=== PATIENT | male | born 1955 | race Caucasian/White ===

== ENCOUNTER 2016-07-22 11:56 | Inpatient (IN) | payer OTHER ==
[2016-07-23] MEDS ORDERED: ONDANSETRON DISINTEGRATING 4 MG TAB PO PRN (17:36)
--- NOTE | 2016-07-23 18:54 | GHP ---
[f rep st] HISTORY AND PHYSICAL POST ADMISSION PHYSICIAN EVALUATION AND REHABILITATION TREATMENT PLAN DATE OF ADMISSION: 07/23/2016 DATE OF EVALUATION: 07/23/2016 TIME OF EVALUATION: 1830 REFERRING FACILITY: [facility] REFERRING PHYSICIAN: Dr. Morales CONSULTING PHYSICIANS: There was a consultation with the Physical Medicine Rehabilitation service. He has followup scheduled with Radiation Oncology, but it is unclear whether they consulted while he was in the hospital. 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 IMPAIRMENT GROUP: 2.1. ETIOLOGIC DIAGNOSIS: Nontraumatic brain dysfunction. DATE OF ONSET: 07/15/2016. DATE OF SURGERY: 07/17/2016. HISTORY OF PRESENT ILLNESS: Mr. Lane had several months of abnormal olfactory sensation and belkis vu phenomena. He was seen by a neurologist and had an MRI ordered, which showed a peripherally enhancing mass in the inferior right frontal lobe extending into the right insula. He was seen in consultation by neurosurgeon, Dr. Kirkland, in [place]. He went to the [facility] in [place] for a second opinion and there, he underwent a craniotomy and excision of the mass by Dr. Morales. There was residual tumor in the right temporal lobe. Postoperative MRI was suggestive of a new acute infarct involving the right frontal operculum, right basal ganglia and caudate head. He had left hemiparesis and dysarthria. He had improvement in his left arm strength. He had some difficulty with swallowing and this improved, and he was finally on a regular diet with thin liquids. He had urinary retention during his stay and with a history of benign prostatic hypertrophy, he was begun on tamsulosin and has had resolution of the urinary retention. OTHER STUDIES AND LABS DURING HIS HOSPITALIZATION: A chest x-ray showed no acute cardiopulmonary abnormality on 07/15/2016. Urinalysis on 07/20/2016 showed small blood and otherwise was completely within normal limits. There was an upper extremity Doppler ultrasound done for redness and swelling of the left upper extremity and there was no deep venous thrombosis noted. PRECAUTIONS: He is a fall risk. He has seizure precautions. ACTIVE COMORBIDITIES: He has the tier 3 comorbidity of hemiparesis, otherwise there are no active tier 1, tier 2, or tier 3 active comorbidities. PAST MEDICAL HISTORY: There is a history of benign prostatic hypertrophy and of back pain. PAST SURGICAL HISTORY: He has had knee arthroscopy, an appendectomy, and a tonsillectomy. ALLERGIES: There are no known drug allergies. PREHOSPITAL MEDICATIONS: He had been prescribed levetiracetam by Dr. Franco. Other than that, I have no information about his prehospital medications. ADMISSION MEDICATIONS: 1. Oxycodone 5-10 mg p.o. q.3 hours p.r.n. 2. Levetiracetam 1000 mg p.o. b.i.d. 3. Dexamethasone 2 mg p.o. b.i.d. for 1 day and then beginning 07/24/2016, dexamethasone 1 mg p.o. b.i.d. 4. Tamsulosin 0.4 mg p.o. daily. 5. Famotidine 20 mg p.o. b.i.d. to continue as long as he is on dexamethasone. 6. Acetaminophen 1000 mg p.o. q.8 hours p.r.n. 7. Ondansetron 4 mg p.o. q.6 hours p.r.n. FAMILY HISTORY: Noncontributory. SOCIAL HISTORY: He is . He lives with his . 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 His also works out of the home. He has 2 sons, 1 of whom is in college and both of whom are local for now. He is not a tobacco smoker. He is an occasional alcohol and marijuana user. REVIEW OF SYSTEMS: He reports pain approximately 5/10 in his right forehead and right neck. He reports pain control has been adequate overall with acetaminophen. He denies nausea or vomiting coincident with the pain. He has weakness in the left upper extremity, but this has been getting stronger. He denies loss of sensation or tingling in the extremities. He denies vision changes. He denies difficulty swallowing, though he had noticed some drooling out of the left side of his mouth which has resolved and occasional cough, possibly from pooling of saliva. He denies nausea, vomiting, constipation, or diarrhea. He denies chest pain or palpitations. Denies fever or chills. He does not have a sore throat. He denies dysuria. He does have some urinary frequency at night. He denies joint pain or joint swelling. He denies skin rash or skin breakdown and otherwise, a 10-point review of systems is negative. PHYSICAL EXAM: VITALS: Not yet available in the chart. GENERAL: This is a well-nourished, well-developed man, appears younger than his chronologic age, cooperative, and in no acute distress. HEENT: There is a healing surgical scar across his right frontal scalp with minimal eschar. No dehiscence or erythema. No drainage. Extraocular movements are intact. Pupils are equal, round and reactive to light. Mucous membranes are moist. Dentition is in good condition. NECK: Supple. HEART: There is a regular rate and rhythm with no murmurs, rubs, or gallops. LUNGS: Clear to auscultation bilaterally. ABDOMEN : Soft, nontender, nondistended with normoactive bowel sounds and no hepatosplenomegaly. EXTREMITIES: There is no cyanosis, clubbing, or edema. Radial and dorsalis pedis pulses are 2+ bilaterally. NEUROLOGIC: He is alert and oriented x3. Cranial nerves 2-12 overall are grossly intact, but for a left facial droop. He has of 4/5 strength in the left upper extremity regarding hand signal person, shoulder shrug, biceps and triceps strength. Otherwise, his strength is 5/5 overall. He is able to arise from supine to seated independently and from seated to standing independently. Sensation is intact to light touch. Deep tendon reflexes are globally hypoactive. CURRENT LEVEL OF FUNCTION PER THE PREADMISSION SCREEN: Regarding diet, feeding , and swallowing, he was on a regular texture diet with thin liquids. He had swallow precautions for mild oral dysphagia. For grooming, he was noted to need assistance. For bathing, he needed assistance. For dressing, he needed assistance. For toileting, he needed assistance. Bed mobility was done with standby assist. Transfers with contact guard assist. He used a walker. His balance was poor. His endurance was poor. Regarding gait, he required minimal assistance with verbal cues. Regarding communication, he was noted to have mild dysarthria. For cognition, he needed some verbal cuing. Regarding safety precautions, he was considered to have fall, cognition, and aspiration precautions. He required cues to attend to the left side. IMPRESSION: Mr. Jay Lane is a 61-year-old man, who is now postoperative day 6 following a right frontal craniotomy and resection of an right inferior frontal mass, which most likely is a glioblastoma multiforme. He had a perioperative infarction involving the operculum and basal ganglia. He has had considerable improvement in his function with overall resolution of dysphagia and diet advancement, and with great improvement in his left upper extremity strength. He is appropriate for inpatient rehabilitation as he continues to have debility regarding balance, ambulation and activities of daily living, and he continues to have swallow precautions. He will benefit from comprehensive services in the inpatient rehabilitation unit. Additionally , he will benefit from nursing care regarding wound healing, bowel and bladder management, and avoidance of pressure sores. He will benefit from medical care regarding pain management, seizure prophylaxis, and benign prostatic hypertrophy. His goal is to return home with his family. For a safe discharge, it is anticipated that he will achieve modified independence with mobility, ADLs, and cognition, and that there will be medication management and neurologic training done for the patient and his family. Any durable medical equipment that might be required will be setup, and he will be referred for post rehabilitation services. He will have therapy with Physical Therapy, Occupational Therapy, and Speech and Language Pathology for 60 minutes per day for each discipline on 5-7 days per week. His expected duration of stay is 10-12 days. It is expected that after discharge, he will continue to benefit from home health services including speech and language pathology, occupational therapy, and physical therapy, as well as a support group. ASSESSMENT AND PLAN: 1. Debility, status post craniotomy and resection of a brain mass. Physical and occupational therapy to optimize mobility and activities of daily living. 2. Dysphagia, largely resolved and possible cognitive effect resulting from surgery and perioperative brain infarction. He will have assessment per Speech and Language Pathology. 3. Status post craniotomy. He will have nursing care for wound healing and medical attention regarding pain management. He will continue dexamethasone as ordered out of the hospital to reduce cerebral edema and levetiracetam for seizure prophylaxis. 4. Benign prostatic hypertrophy with urinary retention, which appears to be effectively treated with tamsulosin. 5. Likely glioblastoma multiforme. He will have follow up with Radiation Oncology at the [facility]. FOLLOWUP PLANS: He has followup planned with Dr. Morales, neurosurgeon, on 08/05. Additionally, on 08/05/2016 he will see oncologist, Dr. Fabio Cloud and radiation oncologist, Dr. Dylon Cheek. He will follow up within 1-2 weeks of discharge additionally with his primary care provider, Dr. Jose Silva in [place]. /[id number]/MODL MTDD
[2016-07-23] MEDS ORDERED: DEXAMETHASONE 2 MG TAB PO SCH (21:00)
[2016-07-23] MEDS: ACETAMINOPHEN 500 MG TAB PO PRN (21:50)
[2016-07-23] MEDS: FAMOTIDINE 20 MG TAB PO SCH (21:50)
[2016-07-23] MEDS: levETIRAcetam 500 MG TAB PO SCH (21:50)
[2016-07-24] MEDS: DEXAMETHASONE 2 MG TAB PO SCH ×2 (08:50→20:40)
[2016-07-24] MEDS: levETIRAcetam 500 MG TAB PO SCH ×2 (08:53→20:40)
[2016-07-24] MEDS: FAMOTIDINE 20 MG TAB PO SCH ×2 (08:53→20:40)
[2016-07-24] MEDS: TAMSULOSIN HCL 0.4 MG CAP PO SCH (08:54)
--- NOTE | 2016-07-24 10:28 | SOAPPROG ---
SOAP Progress Note Assessment/Plan: Assessment: * Debility, status post craniotomy and resection of a brain mass. Physical and occupational therapy to optimize mobility and activities of daily living. Has L hemineglect and drags L foot per OT. * Dysphagia, largely resolved, and possible cognitive deficit due to surgery and perioperative brain infarction. He will have assessment per Speech and Language Pathology. * Status post craniotomy. He will have nursing care for wound healing and medical attention regarding pain management. He will continue dexamethasone as ordered out of the hospital to reduce cerebral edema and levetiracetam for seizure prophylaxis. * Benign prostatic hypertrophy with urinary retention, which appears to be effectively treated with tamsulosin. * Likely glioblastoma multiforme. He will have follow up with Radiation Oncology at the [facility]. FOLLOWUP PLANS: He has followup planned with Dr. Morales, neurosurgeon, on 08/05. Additionally, on 08/05/2016 he will see oncologist, Dr. Fabio Cloud and radiation oncologist, Dr. Dylon Cheek. He will follow up within 1-2 weeks of discharge additionally with his primary care provider, Dr. Jose Silva in [place]. 07/24/16 11:08 Subjective: Slept well overall but was awake at about 0100 feeling thirsty. Has mild BERUMEN. No f/c, cough, dyspnea. Objective: Vital Signs Temp Pulse Resp BP Pulse Ox 36.6 C 63 16 116/77 95 07/23/16 20:00 07/23/16 20:00 07/23/16 20:00 07/23/16 20:00 07/23/16 20:00 07/23/16 07/24/16 07/25/16 05:59 05:59 05:59 Output Total 475 Balance -475 Physical Exam - Physical Exam General Appearance: WD/WN, alert, no apparent distress Respiratory: normal breath sounds, No crackles, No rhonchi, No wheezing Cardiac/Chest: regular rate, rhythm, No edema Abdomen: normal bowel sounds, non-tender, soft, No distended Skin: other (R scalp frotal/temporal incision with eschar, no erythema, discharge or dehiscence) Neuro/Psych: alert, normal mood/affect, oriented x 3, motor weakness (LUE) ICD10 Worksheet Patient Problems: Problems Problem Status Diagnosed Abnormality of gait following cerebrovascular accident (CVA) Acute CVA (cerebral vascular accident) Acute Glioblastoma multiforme Acute S/P craniotomy Acute - ICD10 Problem Qualifiers (1) Abnormality of gait following cerebrovascular accident (CVA)
--- NOTE | 2016-07-24 11:37 | PDOREHIP ---
Admission [facility] - Admission - 3 Day Assessment Period Admission Date/Day 1: 07/23/16 Day 2: 07/24/16 Day 3: 07/25/16 - Active Diagnoses Comorbidities and Co-existing Conditions at Admission: 75913. None of the Above - Skin Conditions Unhealed Pressure Ulcer (1 or more/Stage 1 or >)-Admission: 0. No
[2016-07-24] MEDS ORDERED: DEXAMETHASONE 2 MG TAB PO SCH (21:00)
[2016-07-25] MEDS: ACETAMINOPHEN 500 MG TAB PO PRN ×2 (08:28→16:36)
[2016-07-25] MEDS: DEXAMETHASONE 2 MG TAB PO SCH ×2 (08:29→19:49)
[2016-07-25] MEDS: FAMOTIDINE 20 MG TAB PO SCH ×2 (08:30→19:50)
[2016-07-25] MEDS: SENNOSIDES 1 TAB PO PRN (08:31)
[2016-07-25] MEDS: KEPPRA 500 MG PO SCH (08:31)
[2016-07-25] MEDS: TAMSULOSIN HCL 0.4 MG CAP PO SCH (08:32)
--- NOTE | 2016-07-25 11:20 | SOAPPROG ---
SOAP Progress Note Assessment/Plan: Assessment: * Debility, status post craniotomy and resection of a brain mass. Physical and occupational therapy to optimize mobility and activities of daily living. Has L hemineglect and drags L foot per OT. * Dysphagia, largely resolved, and cognitive deficit due to surgery and perioperative brain infarction. He will have assessment per Speech and Language Pathology. * Status post craniotomy. He will have nursing care for wound healing and medical attention regarding pain management. Dexamethasone dosing d/w Neurosurgery resident at [facility] 07/25/16: to continue 1 mg BID until follow -up with Neuro-oncology on 08/05/15. Continue levetiracetam for seizure prophylaxis. * Insomnia: trial of trazodone 25 mg at starting 07/25/16. * Benign prostatic hypertrophy with urinary retention, which appears to be effectively treated with tamsulosin. * Glioblastoma multiforme. He will have follow up with Neuro-oncology and Radiation Oncology at the [facility]. FOLLOWUP PLANS: He has followup planned with Dr. Morales, neurosurgeon, on 08/05. Additionally, on 08/05/2016 he will see oncologist, Dr. Fabio Cloud and radiation oncologist, Dr. Dylon Cheek. He will follow up within 1-2 weeks of discharge additionally with his primary care provider, Dr. Jose Silva in [place]. 07/25/16 11:18 Subjective: C/O poor sleep. Difficulty with repositioning overnight. O/w w/out complaint. L arm improving. Has constipation; took PRN senna this morning. Objective: Vital Signs Temp Pulse Resp BP Pulse Ox 36.6 C 66 16 109/79 92 07/25/16 05:38 07/25/16 05:38 07/25/16 05:38 07/25/16 05:38 07/25/16 05:38 07/24/16 07/25/16 07/26/16 05:59 05:59 05:59 Intake Total 1900 700 Output Total 475 1100 1 Balance -475 800 699 Physical Exam - Physical Exam General Appearance: WD/WN, alert, no apparent distress, other (Ambulating in chen CGA with OT on the way to the shower) Respiratory: No respiratory distress, No accessory muscle use Neuro/Psych: alert, normal mood/affect, oriented x 3, abnormal gait (normal pace ; mildly ataxic placement of L foot), motor weakness (L arm w/out arm swing during gait but able to move at shoulder, elbow) ICD10 Worksheet Patient Problems: Problems Problem Status Diagnosed Abnormality of gait following cerebrovascular accident (CVA) Acute CVA (cerebral vascular accident) Acute Glioblastoma multiforme Acute S/P craniotomy Acute - ICD10 Problem Qualifiers (1) Abnormality of gait following cerebrovascular accident (CVA)
[2016-07-25] MEDS: oxyCODONE IR 5 MG TAB PO PRN ×2 (12:53→16:35)
[2016-07-25] MEDS ORDERED: MAGNESIUM HYDROXIDE 30 ML UDCUP PO PRN (13:00)
[2016-07-25] MEDS: HYDROCORTISONE 2.5% 30 GM CRTUBE TP SCH ×2 (14:47→19:50)
[2016-07-25] MEDS ORDERED: ASPIRIN EC 81 MG TAB PO SCH (19:00)
--- NOTE | 2016-07-25 19:12 | US ---
Left Lower Extremity Deep Venous Duplex Doppler Ultrasound History: Left lower extremity leg pain and swelling. Technique: The left lower extremity deep venous system and veins of the proximal calf were interroga jeanie with grayscale, color, and spectral Doppler imaging. Findings: The left common femoral, superficial femoral, popliteal, and veins of the calf normally co mpress on grayscale imaging. The deep venous system and veins of the proximal calf have normal flow a nd expected variability. The visualized greater saphenous vein compresses normally without thrombus. There is evidence of superficial thrombus involving intramuscular gastrocnemius branch in the left ca lf which corresponds with area of tenderness. Impression: 1. No deep venous thrombosis in the left lower extremity. 2. Superficial thrombophlebitis involving gastrocnemius veins left calf corresponding with tenderness . These findings were discussed by telephone with Dr. Juan Bird.
[2016-07-25] MEDS: traZODone 50 MG TAB PO SCH (19:50)
[2016-07-25] MEDS: ENOXAPARIN 40 MG/0.4 ML SYR SC SCH (19:56)
[2016-07-26] MEDS: ACETAMINOPHEN 500 MG TAB PO PRN ×2 (04:30→16:42)
[2016-07-26] MEDS: oxyCODONE IR 5 MG TAB PO PRN ×3 (04:36→21:02)
[2016-07-26] MEDS: DEXAMETHASONE 2 MG TAB PO SCH ×2 (09:26→21:02)
[2016-07-26] MEDS: ENOXAPARIN 40 MG/0.4 ML SYR SC SCH (09:26)
[2016-07-26] MEDS: FAMOTIDINE 20 MG TAB PO SCH ×2 (09:27→21:02)
[2016-07-26] MEDS: KEPPRA 500 MG PO SCH (09:27)
[2016-07-26] MEDS: HYDROCORTISONE 2.5% 30 GM CRTUBE TP SCH ×2 (09:27→21:01)
[2016-07-26] MEDS: TAMSULOSIN HCL 0.4 MG CAP PO SCH (09:28)
[2016-07-26] MEDS: SENNOSIDES 1 TAB PO PRN ×2 (09:28→21:01)
--- NOTE | 2016-07-26 13:10 | SOAPPROG ---
SOAP Progress Note Assessment/Plan: Assessment: * Debility, status post craniotomy and resection of a brain mass. Physical and occupational therapy to optimize mobility and activities of daily living. Has L hemineglect and drags L foot per OT. * Dysphagia, largely resolved, and cognitive deficit due to surgery and perioperative brain infarction. He will have assessment per Speech and Language Pathology. * Superficial thrombosis L gastrocnemius veins: main risk factor is GBM. Mobility improving. D/W Dr. Walton, Heme/Onc contract project manager: advises enoxaparin X 2 weeks then switch to ASA. * Status post craniotomy. He will have nursing care for wound healing and medical attention regarding pain management. Dexamethasone dosing d/w Neurosurgery resident at [facility] 07/25/16: to continue 1 mg BID until follow -up with Neuro-oncology on 08/05/15. Continue levetiracetam for seizure prophylaxis. * Insomnia: trazodone 25 mg at HS started 07/25/16. Slept well. * Benign prostatic hypertrophy with urinary retention, which appears to be effectively treated with tamsulosin. * Glioblastoma multiforme. He will have follow up with Neuro-oncology and Radiation Oncology at the [facility]. FOLLOWUP PLANS: He has followup planned with Dr. Morales, neurosurgeon, on 08/05. Additionally, on 08/05/2016 he will see oncologist, Dr. Fabio Cloud and radiation oncologist, Dr. Dylon Cheek. He will follow up within 1-2 weeks of discharge additionally with his primary care provider, Dr. Jose Silva in [place]. 07/26/16 13:20 Subjective: No complaints. Slept well. Not in pain, No cough/dyspnea, f/c. Gradually getting more use of the L hand. Objective: Vital Signs Temp Pulse Resp BP Pulse Ox 36.6 C 66 16 117/98 H 94 07/26/16 08:00 07/26/16 08:00 07/26/16 08:00 07/26/16 08:00 07/26/16 08:00 07/25/16 07/26/16 07/27/16 05:59 05:59 05:59 Intake Total 1900 1690 Output Total 1100 1526 Balance 800 164 Physical Exam - Physical Exam General Appearance: WD/WN, alert, no apparent distress Respiratory: No respiratory distress, No accessory muscle use Skin: normal color, warm/dry Neuro/Psych: alert, normal mood/affect, oriented x 3, abnormal embedded software programmer II-XII (L facial droop at mouth; ataxia L hand.) ICD10 Worksheet Patient Problems: Problems Problem Status Diagnosed Abnormality of gait following cerebrovascular accident (CVA) Acute CVA (cerebral vascular accident) Acute Glioblastoma multiforme Acute S/P craniotomy Acute - ICD10 Problem Qualifiers (1) Abnormality of gait following cerebrovascular accident (CVA)
[2016-07-26] MEDS: traZODone 50 MG TAB PO SCH (21:01)
[2016-07-27] MEDS: oxyCODONE IR 5 MG TAB PO PRN (04:53)
[2016-07-27] MEDS: DEXAMETHASONE 2 MG TAB PO SCH ×2 (09:31→21:27)
[2016-07-27] MEDS: ENOXAPARIN 40 MG/0.4 ML SYR SC SCH (09:32)
[2016-07-27] MEDS: HYDROCORTISONE 2.5% 30 GM CRTUBE TP SCH ×2 (09:32→21:31)
[2016-07-27] MEDS: KEPPRA 500 MG PO SCH (09:32)
[2016-07-27] MEDS: FAMOTIDINE 20 MG TAB PO SCH ×2 (09:32→21:27)
[2016-07-27] MEDS: TAMSULOSIN HCL 0.4 MG CAP PO SCH (09:33)
[2016-07-27] MEDS ORDERED: IBUPROFEN 600 MG TAB PO PRN (09:57)
--- NOTE | 2016-07-27 10:57 | SOAPPROG ---
SOAP Progress Note Assessment/Plan: Assessment: * Debility, status post craniotomy and resection of a brain mass R frontal with perioperative CVA; as L hemineglect, LUE weakness. Initial FIM 77 on 07/27/16. SBA/CGA for T'fers and ambulation. Min A lower body dressing. L ignoral but no visual fieeld cut. Continue PT & OT to optimize mobility and activities of daily living. * Dysphagia, largely resolved, and cognitive deficit due to surgery and perioperative brain infarction. Has impulsivity and decreased safety awareness, improving. Continue SLATE ROOFER HELPER. * Superficial thrombosis L gastrocnemius veins: main risk factor is GBM. Mobility improving. D/W Dr. Walton, Heme/Onc station usher: advises enoxaparin X 2 weeks then switch to ASA. Has been using oxycodone for pain; add ibuprofen PRN. * Constipation: add bisacodyl suppository PRN. Continue laxatives. * Status post craniotomy. He will have nursing care for wound healing and medical attention regarding pain management. Dexamethasone dosing d/w Neurosurgery resident at [facility] 07/25/16: to continue 1 mg BID until follow -up with Neuro-oncology on 08/05/15. Continue levetiracetam for seizure prophylaxis. * Insomnia: trazodone 25 mg at HS started 07/25/16. Slept well. * Benign prostatic hypertrophy with urinary retention: continue tamsulosin. Noctuira may be worse due to oxycodone effect on bladder, and constipation. * Glioblastoma multiforme. He will have follow up with Neuro-oncology and Radiation Oncology at the [facility]. FOLLOWUP PLANS: He has followup planned with Dr. Morales, neurosurgeon, on 08/05. Additionally, on 08/05/2016 he will see oncologist, Dr. Fabio Cloud and radiation oncologist, Dr. Dylon Cheek. He will follow up within 1-2 weeks of discharge additionally with his primary care provider, Dr. Jose Silva in [place]. Attended staffing, 15 min. D/W case mgmt, nursing, communicable disease specialist, PT, OT, SLATE ROOFER HELPER. Has 2 steps to enter house, then can live on 1 level. Has good family support. Goal to discharge by 08/04/16. 07/27/16 10:58 Subjective: C/O L calf pain and has been using oxycodone (X 3 yesterday). Has constipation. Has nocturia X 2. No f/c, cough/dyspnea. N/V. Objective: Vital Signs Temp Pulse Resp BP Pulse Ox 36.8 C 71 16 107/72 93 07/26/16 18:43 07/26/16 18:43 07/26/16 18:43 07/26/16 18:43 07/26/16 18:43 07/26/16 07/27/16 07/28/16 05:59 05:59 05:59 Intake Total 1690 1000 Output Total 1526 1000 Balance 164 0 - Time Spent With Patient Time Spent With Patient: Greater than 35 minutes floor time today, including more than 50% of time in coordination of care during staffing, and counseling patient. Physical Exam - Physical Exam General Appearance: WD/WN, alert, no apparent distress Respiratory: normal breath sounds, No crackles, No rhonchi, No wheezing Cardiac/Chest: regular rate, rhythm, No edema Skin: normal color, warm/dry Neuro/Psych: alert, normal mood/affect, oriented x 3 ICD10 Worksheet Patient Problems: Problems Problem Status Diagnosed Abnormality of gait following cerebrovascular accident (CVA) Acute CVA (cerebral vascular accident) Acute Glioblastoma multiforme Acute S/P craniotomy Acute - ICD10 Problem Qualifiers (1) Abnormality of gait following cerebrovascular accident (CVA)
[2016-07-27] MEDS ORDERED: BISACODYL 10 MG SUPP PR PRN (10:58)
[2016-07-27] MEDS: ACETAMINOPHEN 500 MG TAB PO PRN (15:26)
[2016-07-27] MEDS: traZODone 50 MG TAB PO SCH (21:28)
[2016-07-28] MEDS: oxyCODONE IR 5 MG TAB PO PRN (06:30)
[2016-07-28] MEDS: DEXAMETHASONE 2 MG TAB PO SCH ×2 (08:16→20:04)
[2016-07-28] MEDS: FAMOTIDINE 20 MG TAB PO SCH ×2 (08:17→20:04)
[2016-07-28] MEDS: TAMSULOSIN HCL 0.4 MG CAP PO SCH (08:17)
[2016-07-28] MEDS: KEPPRA 500 MG PO SCH (08:19)
[2016-07-28] MEDS: ENOXAPARIN 40 MG/0.4 ML SYR SC SCH (08:21)
--- NOTE | 2016-07-28 10:45 | SOAPPROG ---
SOAP Progress Note Assessment/Plan: Assessment: * Debility, status post craniotomy and resection of a brain mass R frontal with perioperative CVA; has L hemineglect, LUE weakness. Initial FIM 77 on . SBA/CGA for T'fers and ambulation. Min A lower body dressing. L ignoral but no visual field cut. Continue PT & OT to optimize mobility and activities of daily living. * Dysphagia, largely resolved, and cognitive deficit due to surgery and perioperative brain infarction. Has impulsivity and decreased safety awareness, improving. Continue HOSTED SERVICES ANALYST. * Superficial thrombosis L gastrocnemius veins: main risk factor is GBM. Mobility improving. D/W Dr. Walton, Heme/Onc marine electronics repairer: advises prophylactic dose enoxaparin X 2 weeks then switch to ASA. Has been using oxycodone for pain ; add ibuprofen PRN. * Constipation: add bisacodyl suppository PRN. Continue laxatives. * Status post craniotomy. He will have nursing care for wound healing and medical attention regarding pain management. Dexamethasone dosing d/w Neurosurgery resident at [facility] 07/25/16: to continue 1 mg BID until follow -up with Neuro-oncology on 08/05/15. Continue levetiracetam for seizure prophylaxis. * Insomnia: trazodone 25 mg at HS started 07/25/16. Slept well. * Benign prostatic hypertrophy with urinary retention: continue tamsulosin. Nocturia may be worse due to oxycodone effect on bladder, and constipation. * Glioblastoma multiforme. He will have follow up with Neuro-oncology and Radiation Oncology at the [facility]. FOLLOWUP PLANS: He has followup planned with Dr. Morales, neurosurgeon, on 08/05. Additionally, on 08/05/2016 he will see oncologist, Dr. Fabio Cloud and radiation oncologist, Dr. Dylon Cheek. He will follow up within 1-2 weeks of discharge additionally with his primary care provider, Dr. Jose Silva in [place]. Has 2 steps to enter house, then can live on 1 level. Has good family support. Goal to discharge by 08/04/16. 07/28/16 10:46 Subjective: No xomplaints this morning. Feeling cognitively clearer. Had BERUMEN yesterday afternoon and noted that he became "grumpy." Massage scheduled for this afternoon. Objective: Vital Signs Temp Pulse Resp BP Pulse Ox 36.6 C 60 16 113/73 94 07/28/16 08:00 07/28/16 08:00 07/28/16 08:00 07/28/16 08:00 07/28/16 08:00 07/27/16 07/28/16 07/29/16 05:59 05:59 05:59 Intake Total 1000 825 Output Total 1000 750 600 Balance 0 75 -600 Physical Exam - Physical Exam General Appearance: WD/WN, alert, no apparent distress Respiratory: normal breath sounds, No crackles, No rhonchi, No wheezing Cardiac/Chest: regular rate, rhythm, No edema Skin: normal color, warm/dry ICD10 Worksheet Patient Problems: Problems Problem Status Diagnosed Abnormality of gait following cerebrovascular accident (CVA) Acute CVA (cerebral vascular accident) Acute Glioblastoma multiforme Acute S/P craniotomy Acute - ICD10 Problem Qualifiers (1) Abnormality of gait following cerebrovascular accident (CVA)
[2016-07-28] MEDS: ACETAMINOPHEN 500 MG TAB PO PRN (12:25)
[2016-07-28] MEDS: HYDROCORTISONE 2.5% 30 GM CRTUBE TP SCH ×2 (13:18→20:04)
[2016-07-28] MEDS: traZODone 50 MG TAB PO SCH (20:04)
[2016-07-29] MEDS: ACETAMINOPHEN 500 MG TAB PO PRN ×2 (05:11→19:23)
[2016-07-29] MEDS: HYDROCORTISONE 2.5% 30 GM CRTUBE TP SCH ×2 (08:51→19:23)
[2016-07-29] MEDS: TAMSULOSIN HCL 0.4 MG CAP PO SCH (08:51)
[2016-07-29] MEDS: ENOXAPARIN 40 MG/0.4 ML SYR SC SCH (08:51)
[2016-07-29] MEDS: FAMOTIDINE 20 MG TAB PO SCH ×2 (08:51→19:22)
[2016-07-29] MEDS: KEPPRA 500 MG PO SCH (08:51)
[2016-07-29] MEDS: DEXAMETHASONE 2 MG TAB PO SCH ×2 (08:51→19:22)
--- NOTE | 2016-07-29 12:08 | SOAPPROG ---
SOAP Progress Note Assessment/Plan: Assessment: * Debility, status post craniotomy and resection of a brain mass R frontal with perioperative CVA; has L hemineglect, LUE weakness. Initial FIM 77 on . SBA/CGA for T'fers and ambulation. Min A lower body dressing. L ignoral but no visual field cut. Continue PT & OT to optimize mobility and activities of daily living. * Dysphagia, largely resolved, and cognitive deficit due to surgery and perioperative brain infarction. Has impulsivity and decreased safety awareness, improving. Continue OPERATOR SUPPLY. * Superficial thrombosis L gastrocnemius veins: main risk factor is GBM. Mobility improving. D/W Dr. Walton, Heme/Onc aircraft air conditioning mechanic: advises prophylactic dose enoxaparin X 2 weeks (through 08/09/16) then switch to ASA. Has been using oxycodone for pain; add ibuprofen PRN. * Constipation: add bisacodyl suppository PRN. Continue laxatives. * Status post craniotomy. He will have nursing care for wound healing and medical attention regarding pain management. Dexamethasone dosing d/w Neurosurgery resident at [facility] 07/25/16: to continue 1 mg BID until follow -up with Neuro-oncology on 08/05/15. Continue levetiracetam for seizure prophylaxis. * Insomnia: trazodone 25 mg at HS started 07/25/16. Slept well. * Benign prostatic hypertrophy with urinary retention: continue tamsulosin. Nocturia may be worse due to oxycodone effect on bladder, and constipation. * Glioblastoma multiforme. He will have follow up with Neuro-oncology and Radiation Oncology at the [facility]. FOLLOWUP PLANS: He has followup planned with Dr. Morales, neurosurgeon, on 08/05. Additionally, on 08/05/2016 he will see oncologist, Dr. Fabio Cloud and radiation oncologist, Dr. Dylon Cheek. He will follow up within 1-2 weeks of discharge additionally with his primary care provider, Dr. Jose Silva in [place]. Has 2 steps to enter house, then can live on 1 level. Has good family support. Goal to discharge by 08/04/16. 07/29/16 12:06 Subjective: No complaints. Working with OT. Feels he's walking better. No f/c, cough, dyspnea. Objective: Vital Signs Temp Pulse Resp BP Pulse Ox 36.6 C 75 16 119/88 H 95 07/29/16 07:16 07/29/16 07:16 07/29/16 07:16 07/29/16 07:16 07/29/16 07:16 07/28/16 07/29/16 07/30/16 05:59 05:59 05:59 Intake Total 825 820 Output Total 750 2500 Balance 75 -1680 Physical Exam - Physical Exam General Appearance: WD/WN, alert, no apparent distress Respiratory: No respiratory distress, No accessory muscle use Skin: normal color, warm/dry Neuro/Psych: alert, normal mood/affect, oriented x 3, abnormal gait (Ambulating in chen with OT, FURNITURE DESIGNER, overall normal gait), motor weakness (LUE, working on stacking cones with OT.) ICD10 Worksheet Patient Problems: Problems Problem Status Diagnosed Abnormality of gait following cerebrovascular accident (CVA) Acute CVA (cerebral vascular accident) Acute Glioblastoma multiforme Acute S/P craniotomy Acute - ICD10 Problem Qualifiers (1) Abnormality of gait following cerebrovascular accident (CVA)
[2016-07-29] MEDS: traZODone 50 MG TAB PO SCH (19:22)
[2016-07-30] MEDS: FAMOTIDINE 20 MG TAB PO SCH ×2 (08:03→20:06)
[2016-07-30] MEDS: DEXAMETHASONE 2 MG TAB PO SCH ×2 (08:03→20:06)
[2016-07-30] MEDS: KEPPRA 500 MG PO SCH (08:04)
[2016-07-30] MEDS: HYDROCORTISONE 2.5% 30 GM CRTUBE TP SCH ×2 (08:05→20:07)
[2016-07-30] MEDS: TAMSULOSIN HCL 0.4 MG CAP PO SCH (08:05)
[2016-07-30] MEDS: SENNOSIDES 1 TAB PO PRN (08:05)
[2016-07-30] MEDS: ENOXAPARIN 40 MG/0.4 ML SYR SC SCH (08:34)
--- NOTE | 2016-07-30 13:26 | SOAPPROG ---
SOAP Progress Note Assessment/Plan: Assessment: * Debility, status post craniotomy and resection of a brain mass R frontal with perioperative CVA; has L hemineglect, LUE weakness. Initial FIM 77 on . SBA/CGA for T'fers and ambulation. Min A lower body dressing. L ignoral but no visual field cut. Continue PT & OT to optimize mobility and activities of daily living. * Dysphagia, largely resolved, and cognitive deficit due to surgery and perioperative brain infarction. Has impulsivity and decreased safety awareness, improving. Continue CONTRACTS REPRESENTATIVE. * Superficial thrombosis L gastrocnemius veins: main risk factor is GBM. Mobility improving. D/W Dr. Walton, Heme/Onc applications administrator: advises prophylactic dose enoxaparin X 2 weeks (through 08/09/16) then switch to ASA. Has been using oxycodone for pain; add ibuprofen PRN. * Constipation: add bisacodyl suppository PRN. Continue laxatives. * Status post craniotomy. He will have nursing care for wound healing and medical attention regarding pain management. Dexamethasone dosing d/w Neurosurgery resident at [facility] 07/25/16: to continue 1 mg BID until follow -up with Neuro-oncology on 08/05/15. Continue levetiracetam for seizure prophylaxis. * Insomnia: trazodone 25 mg at started 07/25/16. Sleeping well. * Benign prostatic hypertrophy with urinary retention: continue tamsulosin. Nocturia may be worse due to oxycodone effect on bladder, and constipation. * Glioblastoma multiforme. He will have follow up with Neuro-oncology and Radiation Oncology at the [facility]. FOLLOWUP PLANS: He has followup planned with Dr. Morales, neurosurgeon, on 08/05. Additionally, on 08/05/2016 he will see oncologist, Dr. Fabio Cloud and radiation oncologist, Dr. Dylon Cheek. He will follow up within 1-2 weeks of discharge additionally with his primary care provider, Dr. Jose Silva in [place]. Has 2 steps to enter house, then can live on 1 level. Has good family support. Family meeting 07/31/16. Goal to discharge by 08/04/16. 07/30/16 13:25 Subjective: C/O fatigue after working intherapy on R hand function. Denies cough, dyspnea, f/c, NVDC. No voiding difficulties. Objective: Vital Signs Temp Pulse Resp BP Pulse Ox 36.5 C 55 L 16 112/80 95 07/30/16 06:32 07/30/16 06:32 07/30/16 06:32 07/30/16 06:32 07/30/16 06:32 07/29/16 07/30/16 07/31/16 05:59 05:59 05:59 Intake Total 820 350 940 Output Total 2500 1300 Balance -1680 -950 940 Physical Exam - Physical Exam General Appearance: WD/WN, alert, no apparent distress Respiratory: No respiratory distress, No accessory muscle use Skin: normal color, warm/dry Neuro/Psych: alert, normal mood/affect, oriented x 3, motor weakness (R hand ataxia) ICD10 Worksheet Patient Problems: Problems Problem Status Diagnosed Abnormality of gait following cerebrovascular accident (CVA) Acute CVA (cerebral vascular accident) Acute Glioblastoma multiforme Acute S/P craniotomy Acute - ICD10 Problem Qualifiers (1) Abnormality of gait following cerebrovascular accident (CVA)
[2016-07-30] MEDS: traZODone 50 MG TAB PO SCH (20:06)
[2016-07-31] MEDS: ACETAMINOPHEN 500 MG TAB PO PRN ×2 (08:53→20:17)
[2016-07-31] MEDS: FAMOTIDINE 20 MG TAB PO SCH ×2 (08:54→20:18)
[2016-07-31] MEDS: HYDROCORTISONE 2.5% 30 GM CRTUBE TP SCH ×2 (08:54→20:19)
[2016-07-31] MEDS: DEXAMETHASONE 2 MG TAB PO SCH ×2 (08:54→20:19)
[2016-07-31] MEDS: TAMSULOSIN HCL 0.4 MG CAP PO SCH (08:54)
[2016-07-31] MEDS: KEPPRA 500 MG PO SCH (08:55)
[2016-07-31] MEDS: ENOXAPARIN 40 MG/0.4 ML SYR SC SCH (10:10)
--- NOTE | 2016-07-31 12:56 | SOAPPROG ---
SOAP Progress Note Assessment/Plan: Assessment: * Debility, status post craniotomy and resection of a brain mass R frontal with perioperative CVA; has L hemineglect, LUE ataxia > weakness. Initial FIM 77 on 07/27/16. Improving mobility and ADLs; will progress towards I in room over weekend 08/01/16 - 08/02/15. L ignoral but no visual field cut. Continue PT & OT to optimize mobility and activities of daily living. * Dysphagia, largely resolved, and cognitive deficit due to surgery and perioperative brain infarction. Has impulsivity and decreased safety awareness, improving. Continue SURETY BOND AGENT. * Superficial thrombosis L gastrocnemius veins: main risk factor is GBM. Mobility improving. D/W Dr. Walton, Heme/Onc rubbish collection supervisor: advises prophylactic dose enoxaparin X 2 weeks (through 08/09/16) then switch to ASA. Has been using oxycodone for pain; add ibuprofen PRN. * Constipation: add bisacodyl suppository PRN. Continue laxatives. * Status post craniotomy. He will have nursing care for wound healing and medical attention regarding pain management. Dexamethasone dosing d/w Neurosurgery resident at [facility] 07/25/16: to continue 1 mg BID until follow -up with Neuro-oncology on 08/05/15. Continue levetiracetam for seizure prophylaxis. * Insomnia: trazodone 25 mg at HS started 07/25/16. Sleeping well. * Benign prostatic hypertrophy with urinary retention: continue tamsulosin. Nocturia may be worse due to oxycodone effect on bladder, and constipation. * Glioblastoma multiforme. He will have follow up with Neuro-oncology and Radiation Oncology at the [facility]. FOLLOWUP PLANS: He has followup planned with Dr. Morales, neurosurgeon, on 08/05. Additionally, on 08/05/2016 he will see oncologist, Dr. Fabio Cloud and radiation oncologist, Dr. Dylon Cheek. He will follow up within 1-2 weeks of discharge additionally with his primary care provider, Dr. Jose Silva in [place]. Attended staffing, 30 min. Patient, , son and daughter in attendance. D/W case mgmt, nursing, PT, OT, SURETY BOND AGENT. Discussed functional limitations re Ll ignoral and family's role in assisting once he goes home. Has 2 steps to enter house, then can live on 1 level. Has good family support. Goal to discharge by 08/04/16. 07/31/16 12:57 Subjective: No complaints. SLept well, not in pain. No f/c, cough/dyspnea, n/v/c/d. Objective: Vital Signs Temp Pulse Resp BP Pulse Ox 36.8 C 59 L 14 113/74 92 07/31/16 07:40 07/31/16 07:40 07/31/16 07:40 07/31/16 07:40 07/31/16 07:40 07/30/16 07/31/16 08/01/16 05:59 05:59 05:59 Intake Total 350 1670 360 Output Total 1300 600 Balance -950 1070 360 - Time Spent With Patient Time Spent With Patient: Greater than 35 minutes floor time today, including more than 50% of time on coordination of care and counseling during family meeting. Physical Exam - Physical Exam General Appearance: WD/WN, alert, no apparent distress Respiratory: normal breath sounds, No crackles, No rhonchi, No wheezing Cardiac/Chest: regular rate, rhythm, No edema Skin: normal color, warm/dry Neuro/Psych: alert, normal mood/affect, oriented x 3, motor weakness (LUE ataxia ) ICD10 Worksheet Patient Problems: Problems Problem Status Diagnosed Abnormality of gait following cerebrovascular accident (CVA) Acute CVA (cerebral vascular accident) Acute Glioblastoma multiforme Acute S/P craniotomy Acute - ICD10 Problem Qualifiers (1) Abnormality of gait following cerebrovascular accident (CVA)
[2016-07-31] MEDS: traZODone 50 MG TAB PO SCH (20:18)
[2016-08-01] MEDS: KEPPRA 500 MG PO SCH (08:57)
[2016-08-01] MEDS: ACETAMINOPHEN 500 MG TAB PO PRN ×2 (08:57→21:00)
[2016-08-01] MEDS: TAMSULOSIN HCL 0.4 MG CAP PO SCH (08:58)
[2016-08-01] MEDS: FAMOTIDINE 20 MG TAB PO SCH ×2 (08:59→21:02)
[2016-08-01] MEDS: DEXAMETHASONE 2 MG TAB PO SCH ×2 (08:59→21:01)
[2016-08-01] MEDS: ENOXAPARIN 40 MG/0.4 ML SYR SC SCH (09:01)
[2016-08-01] MEDS: HYDROCORTISONE 2.5% 30 GM CRTUBE TP SCH ×2 (09:05→21:03)
--- NOTE | 2016-08-01 11:14 | SOAPPROG ---
SOAP Progress Note Assessment/Plan: Assessment: * Debility, status post craniotomy and resection of a brain mass R frontal with perioperative CVA; has L hemineglect, LUE ataxia > weakness. Initial FIM 77 on 07/27/16. Improving mobility and ADLs; will progress towards I in room over weekend 08/01/16 - 08/02/15. L ignoral but no visual field cut. Continue PT & OT to optimize mobility and activities of daily living. * Dysphagia, largely resolved, and cognitive deficit due to surgery and perioperative brain infarction. Has impulsivity and decreased safety awareness, improving. Continue BREWING DIRECTOR. * Superficial thrombosis L gastrocnemius veins: main risk factor is GBM. Mobility improving. D/W Dr. Walton, Heme/Onc meat boner: advises prophylactic dose enoxaparin X 2 weeks (through 08/09/16) then switch to ASA. Has been using oxycodone for pain; add ibuprofen PRN. * Constipation: add bisacodyl suppository PRN. Continue laxatives. * Status post craniotomy. He will have nursing care for wound healing and medical attention regarding pain management. Dexamethasone dosing d/w Neurosurgery resident at [facility] 07/25/16: to continue 1 mg BID until follow -up with Neuro-oncology on 08/05/15. Continue levetiracetam for seizure prophylaxis. * Insomnia: trazodone 25 mg at HS started 07/25/16. Sleeping well. * Benign prostatic hypertrophy with urinary retention: continue tamsulosin. Nocturia may be worse due to oxycodone effect on bladder, and constipation. * Glioblastoma multiforme. He will have follow up with Neuro-oncology and Radiation Oncology at the [facility]. FOLLOWUP PLANS: He has followup planned with Dr. Morales, neurosurgeon, on 08/05. Additionally, on 08/05/2016 he will see oncologist, Dr. Fabio Cloud and radiation oncologist, Dr. Dylon Cheek. He will follow up within 1-2 weeks of discharge additionally with his primary care provider, Dr. Jose Silva in [place]. Family meeting 07/31/16: discussed functional limitations re L ignoral and family's role in assisting once he goes home. Has 2 steps to enter house, then can live on 1 level. Has good family support. Goal to discharge by 08/04/16. 08/01/16 11:10 Subjective: No complaints. Walked outside with PT today. Objective: Vital Signs Temp Pulse Resp BP Pulse Ox 36.8 C 63 16 109/80 92 08/01/16 06:39 08/01/16 06:39 08/01/16 06:39 08/01/16 06:39 08/01/16 06:39 07/31/16 08/01/16 08/02/16 05:59 05:59 05:59 Intake Total 1670 1210 700 Output Total 600 700 Balance 1070 510 700 Physical Exam - Physical Exam General Appearance: WD/WN, alert, no apparent distress Respiratory: No respiratory distress, No accessory muscle use Skin: normal color, warm/dry Neuro/Psych: alert, normal mood/affect, oriented x 3 ICD10 Worksheet Patient Problems: Problems Problem Status Diagnosed Abnormality of gait following cerebrovascular accident (CVA) Acute CVA (cerebral vascular accident) Acute Glioblastoma multiforme Acute S/P craniotomy Acute - ICD10 Problem Qualifiers (1) Abnormality of gait following cerebrovascular accident (CVA)
[2016-08-01] MEDS: traZODone 50 MG TAB PO SCH (21:00)
[2016-08-02] MEDS: ACETAMINOPHEN 500 MG TAB PO PRN (09:08)
[2016-08-02] MEDS: FAMOTIDINE 20 MG TAB PO SCH ×2 (09:09→20:43)
[2016-08-02] MEDS: DEXAMETHASONE 2 MG TAB PO SCH ×2 (09:09→20:42)
[2016-08-02] MEDS: KEPPRA 500 MG PO SCH (09:09)
[2016-08-02] MEDS: TAMSULOSIN HCL 0.4 MG CAP PO SCH (09:10)
[2016-08-02] MEDS: ENOXAPARIN 40 MG/0.4 ML SYR SC SCH (09:12)
[2016-08-02] MEDS: HYDROCORTISONE 2.5% 30 GM CRTUBE TP SCH ×2 (09:13→20:45)
--- NOTE | 2016-08-02 11:44 | SOAPPROG ---
SOAP Progress Note Assessment/Plan: Assessment: 61 yo gentleman S/P crani for GBM * Debility, status post craniotomy and resection of a brain mass R frontal with perioperative CVA; has L hemineglect, LUE ataxia > weakness. Initial FIM 77 on 07/27/16. Improving mobility and ADLs; will progress towards I in room today . Safety impacted by L ignoral (no visual field cut). Continue PT & OT to optimize mobility and activities of daily living. * Dysphagia, largely resolved, cont monitoring * Cognitive deficit due to surgery and perioperative brain infarction. Has impulsivity and decreased safety awareness, improving. Continue MARKETING COPYWRITER. * Superficial thrombosis L gastrocnemius veins: main risk factor is GBM. Mobility improving. D/W Dr. Walton, Heme/Onc asset protection officer: advises prophylactic dose enoxaparin X 2 weeks (through 08/09/16) then switch to ASA. * Pain: Has been using oxycodone and ibuprofen PRN. * Sleep: has nocturia x1 2/2 BPH and prefers not to be on sleep meds, will change Trazadone to PRN * Constipation: cont bisacodyl suppository PRN. Continue laxatives. * Status post craniotomy. Wound healing. Dexamethasone dosing d/w Neurosurgery resident at [facility] 07/25/16: to continue 1 mg BID until follow -up with Neuro-oncology on 08/05/15. Continue levetiracetam for seizure prophylaxis. * Insomnia: trazodone 25 mg at HS started 07/25/16. Sleeping well. * Benign prostatic hypertrophy with urinary retention: continue tamsulosin. Nocturia may be worse due to oxycodone effect on bladder, and constipation. * Glioblastoma multiforme. He will have follow up with Neuro-oncology and Radiation Oncology at the [facility]. FOLLOWUP PLANS: He has followup planned with Dr. Morales, neurosurgeon, on 08/05. Additionally, on 08/05/2016 he will see oncologist, Dr. Fabio Cloud and radiation oncologist, Dr. Dylon Cheek. He will follow up within 1-2 weeks of discharge additionally with his primary care provider, Dr. Jose Silva in [place]. Plan: Cont Dr Nguyen rehab treatment plan 08/02/16 13:04 Subjective: Resting comfortably In good spirits states he is more tired and slower in processing than yesterday Both request trying a night without the Trazadone Objective: Vital Signs Temp Pulse Resp BP Pulse Ox 36.8 C 71 16 116/75 93 08/02/16 07:15 08/02/16 07:15 08/02/16 07:15 08/02/16 07:15 08/02/16 07:15 08/01/16 08/02/16 08/03/16 05:59 05:59 05:59 Intake Total 1210 700 Output Total 700 200 Balance 510 500 Physical Exam - Physical Exam General Appearance: alert, no apparent distress, other (Crani incision CD&I) Neck: supple Respiratory: lungs clear Cardiac/Chest: regular rate, rhythm Abdomen: normal bowel sounds, soft Skin: normal color, warm/dry, No rash Extremities: No pedal edema, No calf tenderness Neuro/Psych: alert, normal mood/affect, oriented x 3, cognition abnormalities ( word finding, slow SOP), other (No acute changes) ICD10 Worksheet Patient Problems: Problems Problem Status Diagnosed Abnormality of gait following cerebrovascular accident (CVA) Acute CVA (cerebral vascular accident) Acute Glioblastoma multiforme Acute S/P craniotomy Acute
[2016-08-02] MEDS ORDERED: traZODone 50 MG TAB PO PRN (13:07)
[2016-08-03] MEDS: FAMOTIDINE 20 MG TAB PO SCH ×2 (08:04→19:54)
[2016-08-03] MEDS: TAMSULOSIN HCL 0.4 MG CAP PO SCH (08:04)
[2016-08-03] MEDS: DEXAMETHASONE 2 MG TAB PO SCH ×2 (08:06→19:54)
[2016-08-03] MEDS: KEPPRA 500 MG PO SCH (08:07)
[2016-08-03] MEDS: HYDROCORTISONE 2.5% 30 GM CRTUBE TP SCH ×2 (08:09→21:21)
[2016-08-03] MEDS: ENOXAPARIN 40 MG/0.4 ML SYR SC SCH (08:09)
--- NOTE | 2016-08-03 11:01 | SOAPPROG ---
SOAP Progress Note Assessment/Plan: Assessment: 61 yo gentleman S/P crani for GBM * Debility, status post craniotomy and resection of a brain mass R frontal with perioperative CVA; has L hemineglect, LUE>LLE ataxia > weakness. Initial FIM 77 on 07/27/16. Fim improved to 106 on 08/03/16. Improving mobility and ADLs; safe with I in room today 22/02, but mild impulsivity and neglect impact his safety awareness. Continue PT & OT (now and then as outpt) to optimize mobility and activities of daily living. * Dysphagia, largely resolved, some minimal L pocketing persists. cont monitoring * Cognitive deficit due to surgery and perioperative brain infarction. Has impulsivity and decreased safety awareness, improving. Continue PATTERN CLERK. * Superficial thrombosis L gastrocnemius veins: main risk factor is GBM. Mobility improving. D/W Dr. Walton, Heme/Onc concrete technician: advises prophylactic dose enoxaparin X 2 weeks (through 08/09/16) then switch to ASA. * Pain: Minimal. Has been using oxycodone and ibuprofen PRN. * Sleep: has nocturia x1 2/2 BPH and prefers not to be on sleep meds, will change Trazadone to PRN * Constipation: cont bisacodyl suppository PRN. Continue laxatives. * Status post craniotomy. Wound healing. Dexamethasone dosing d/w Neurosurgery resident at [facility] 07/25/16: to continue 1 mg BID until follow -up with Neuro-oncology on 08/05/15. Continue levetiracetam for seizure prophylaxis. * Insomnia: trazodone 25 mg at started 07/25/16. Sleeping well. * Benign prostatic hypertrophy with urinary retention: continue tamsulosin. Nocturia may be worse due to oxycodone effect on bladder, and constipation. * Glioblastoma multiforme. He will have follow up with Neuro-oncology and Radiation Oncology at the [facility]. DISCHARGE PLANS: Home tomorrow 08/04/16, with out patient PT, OT, ST at [facility] FOLLOWUP PLANS: He has followup planned with Dr. Morales, neurosurgeon, on 08/05. Additionally, on 08/05/2016 he will see oncologist, Dr. Fabio Cloud and radiation oncologist, Dr. Dylon Cheek. He will follow up within 1-2 weeks of discharge additionally with his primary care provider, Dr. Jose Silva in [place]. See staffing notes this same date 08/03/16 08/03/16 10:56 Subjective: No new problems or C/O's Medically stable Limited insight No F/C/CP/SOB/N/V/D/C Objective: Vital Signs Temp Pulse Resp BP Pulse Ox 36.8 C 64 18 106/79 96 08/03/16 07:38 08/03/16 07:38 08/03/16 07:38 08/03/16 07:38 08/03/16 07:38 08/02/16 08/03/16 08/04/16 05:59 05:59 05:59 Intake Total 700 Output Total 200 800 Balance 500 -800 Physical Exam - Physical Exam General Appearance: alert, no apparent distress Neck: supple Respiratory: lungs clear Cardiac/Chest: regular rate, rhythm Skin: normal color, warm/dry, No rash Extremities: No pedal edema, No calf tenderness Neuro/Psych: alert, normal mood/affect, oriented x 3, motor weakness, sensory deficit, cognition abnormalities, other (no acute changes) ICD10 Worksheet Patient Problems: Problems Problem Status Diagnosed Abnormality of gait following cerebrovascular accident (CVA) Acute CVA (cerebral vascular accident) Acute Glioblastoma multiforme Acute S/P craniotomy Acute
[2016-08-03 20:19] VITALS: O2SAT 94
[2016-08-04] MEDS: ACETAMINOPHEN 500 MG TAB PO PRN (01:48)
[2016-08-04 06:34] VITALS: BP 107/72; PULSE 66; RESP 18; TEMP 97.5
[2016-08-04] MEDS: DEXAMETHASONE 2 MG TAB PO SCH (08:15)
[2016-08-04] MEDS: FAMOTIDINE 20 MG TAB PO SCH (08:15)
[2016-08-04] MEDS: TAMSULOSIN HCL 0.4 MG CAP PO SCH (08:15)
[2016-08-04] MEDS: ENOXAPARIN 40 MG/0.4 ML SYR SC SCH (08:32)
[2016-08-04] MEDS: HYDROCORTISONE 2.5% 30 GM CRTUBE TP SCH (08:36)
[2016-08-04] MEDS: KEPPRA 500 MG PO SCH (08:37)
--- NOTE | 2016-08-04 18:48 | GDS ---
[f rep st] DISCHARGE SUMMARY ADMITTING DIAGNOSES: Debility status post craniotomy and excision of glioblastoma multiforme with a perioperative cerebrovascular accident. DISCHARGE DIAGNOSES: Debility status post craniotomy and excision of glioblastoma multiforme with a perioperative cerebrovascular accident. CONSULTATIONS: None. PROCEDURES: None. COMPLICATIONS: None. HISTORY/HOSPITAL COURSE: Mr. Lane came to [facility] from the [facility], where he had craniotomy and excision of a glioblastoma multiforme which was located in the right frontal lobe. There was a perioperative cerebrovascular accident. When he came to inpatient rehabilitation, he had dysphagia, left upper extremity weakness, left facial droop, and gait abnormality with balance impairment. He had therapies with Physical, Occupational, Speech Therapy. His initial functional independence measure on 07/27/2016 was 77 which is consistent with long-term care facility level of care. He had considerable improvement subsequently and was made independent in his room before discharge. He was noted to have a left hemineglect, but no visual field cut and initially, he needed significant cuing to avoid colliding with objects on his left. Through the course of his stay, he improved in his ability to scan to the left and his awareness of the left side of the world. He also had steady improvement in his left upper extremity strength and function, though he remained somewhat ataxic. He had dysphagia, which largely resolved with treatment with Speech Therapy. He had a cognitive deficit with impulsivity and decreased safety awareness and reduced insight into his deficits. He worked with Speech Therapy on these issues as well. He suffered a superficial thrombosis of the left gastrocnemius veins. The main risk factor for him was the presence of a cancer. With improved mobility, he was considered a low risk for propagation. He was prophylactically put on enoxaparin for a total of 2 weeks, which was decided after discussion with the on-call oncologist, Dr. Walton. He needed oxycodone for pain initially, but soon became pain-free. He had insomnia, which responded well to trazodone 25 mg q.h.s. During the course of his stay, he had less need for the trazodone and ultimately was not using it. He had urinary retention in the acute hospital and tamsulosin had been started. Tamsulosin was continued. STUDIES AND LABS DURING HIS STAY: No laboratory studies were done. DISCHARGE PLAN: Condition upon discharge is good. Activity is ad josefina, though he is not to be driving, and he will need supervision for any ambulation outside due to his left-sided hemineglect. Diet is regular. Date of next appointment: He has followups with the oncology team at [facility] scheduled for 08/05/2016, including neurosurgeon Dr. Morales, neurooncologist Dr. Cloud, and radiation oncologist Dr. Cheek , and he should have follow up with his primary care provider, Dr. Silva, within 1-2 weeks of his discharge. MEDICATIONS UPON DISCHARGE: 1. Famotidine 20 mg p.o. b.i.d. 2. Acetaminophen 1000 mg p.o. q.8 hours p.r.n. 3. Trazodone 25 mg p.o. q.h.s. p.r.n. 4. Tamsulosin 0.4 mg p.o. daily. 5. Senokot 1-2 tabs p.o. b.i.d. p.r.n. 6. Levetiracetam 1000 mg p.o. b.i.d. 7. Ibuprofen 600 mg p.o. q.6 hours p.r.n. 8. Enoxaparin 40 mg subcutaneous daily through 08/09/2016. 9. Dexamethasone 1 mg p.o. b.i.d. through 08/05/2016. ISSUES TO BE ADDRESSED AT FOLLOWUP: 1. Glioblastoma multiforme: To be assessed and treated per the oncology team at [facility]. Neurosurgery and Neurooncology will make decisions regarding continuing levetiracetam and dexamethasone, and he likely can stop taking famotidine when he is off the dexamethasone. 2. Functional status: He will continue to have physical therapy and occupational therapy at home, and he can follow up regarding functional status with his primary care provider, Dr. Silva. 3. Dysphagia and cognitive deficits: The dysphagia largely resolved. He will have followup with Speech Therapy at home. 4. Benign prostatic hypertrophy: Once he is no longer on opiate medications, which he had not been taking through much of his stay, he could consider discontinuing the tamsulosin and finding if he still has any difficulty with voiding. Copy requested to: Dr. Cheek Radiation Oncologist Dr. Morales Neurosurgery Dr. Cloud Neurooncology /[id number]/MODL MTDD
--- NOTE | 2016-08-05 09:11 | PDOREHIP ---
Admission [facility] - Admission - 3 Day Assessment Period Admission Date/Day 1: 07/23/16 Day 2: 07/24/16 Day 3: 07/25/16 Discharge [facility] - Discharge - 3 Day Assessment Period 2 Days Prior to Anticipated Discharge Date: 08/03/16 1 Day Prior to Anticipated Discharge Date: 08/04/16 Anticipated Discharge Date: 08/05/16 - Discharge Skin Conditions Unhealed Pressure Ulcer (1 or more/Stage 1 or >)-Discharge: 0. No
== END 2016-08-04 14:51 | disposition home or self-care (01) | DRG 949 ==
LOC: BREH 07-23 16:20
PROVIDERS: ADMIT Internal Medicine; ATTEND Internal Medicine
PROC: F08Z4ZZ Home Management Treatment (ICD-10-PCS; principal; 2016-07-23)
PROC: F0636ZZ Communicative/Cognitive Integration Skills Treatment of Neurological System - Whole Body (ICD-10-PCS; principal; 2016-07-23)
PROC: F07M3ZZ Motor Function Treatment of Musculoskeletal System - Whole Body (ICD-10-PCS; principal; 2016-07-23)
DX: Z48.811 Encounter for surgical aftercare following surgery on the nervous system (principal); C71.1 Malignant neoplasm of frontal lobe; I97.821 Postprocedural cerebrovascular infarction following other surgery; I69.354 Hemiplegia and hemiparesis following cerebral infarction affecting left non-dominant side; I82.890 Acute embolism and thrombosis of other specified veins; I69.391 Dysphagia following cerebral infarction; I69.318 Other symptoms and signs involving cognitive functions following cerebral infarction; N40.1 Benign prostatic hyperplasia with lower urinary tract symptoms; R33.8 Other retention of urine; G47.00 Insomnia, unspecified; K59.00 Constipation, unspecified
CPT/HCPCS: 92507-GN; 92522-GN; 92526; 92610; 97001-GP; 97003-GO; 97110-GO; 97110-GP; 97112-GO; 97112-GP; 97116-GP; 97530-GO; 97532-GO; 97535-GO; 99366-GO; J1650

== ENCOUNTER 2016-10-25 10:01 | Emergency (ER) | payer OTHER ==
[2016-10-25 10:07] VITALS: RESP 16
--- NOTE | 2016-10-25 10:45 | EDPHY ---
H & P Stated Complaint: poss seizure this morning. Feels dizzy, recent change in keppra dosing. Time Seen by Provider: 10/25/16 10:12 HPI/ROS: CHIEF COMPLAINT: Spinning HISTORY OF PRESENT ILLNESS: This is a 61-year-old male status post resection of glioblastoma in July of 2016 (with postoperative right-sided infarct) followed by 6 weeks of chemotherapy and radiation therapy. 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 He is taking Keppra. 2 weeks ago was Keppra dose was decreased from 1000 mg twice daily to 750 mg p.o. twice daily. He is compliant with his medication. He had been taking Decadron but this medication was weaned and he has not had any steroid medication for 2 weeks. Last night, in the middle of the night he awoke with a spinning sensation. He was able to return to sleep. When he got up this morning and sat on the edge of the bed he felt as if everything was spinning and moving. His noticed that his eyes were moving back and forth. This lasted for a matter of minutes and resolved. He had associated nausea, no vomiting. He has had chronic dizziness and is experiencing some dizziness/lightheadedness now, similar to what he has been experiencing all along. He has chronic headache and is feeling headache today. It is frontal and slightly worse than usual. He has not had any olfactory sensations or any obvious seizure activity. He is not aware of any new numbness or weakness. No recent head or ear trauma. No ear ache, drainage, or change in hearing. No fever. REVIEW OF SYSTEMS: A ten point review of systems was performed and is negative with the exception of the items mentioned in the HPI. Source: Patient, Family, Old records Exam Limitations: No limitations - Personal History Current Tetanus Diphtheria and Acellular Pertussis (TDAP): Yes - Medical/Surgical History Hx Asthma: No Hx Chronic Respiratory Disease: No Hx Diabetes: No Hx Cardiac Disease: No Hx Renal Disease: No Hx Cirrhosis: No Hx Alcoholism: No Hx HIV/AIDS: No Hx Splenectomy or Spleen Trauma: No Other PMH: Right glioblastoma multiforme status post resection, chemotherapy, and radiation therapy. Olfactory seizures. Knee arthroscopy. Appendectomy. Tonsillectomy. - Social History Smoking Status: Never smoked - Physical Exam Exam: General Appearance: Alert. Vital signs reviewed. Eyes: Pupils equal and round, no conjunctival injection, no discharge. Anicteric. ENT, Mouth: Mucous membranes are moist, no oropharyngeal erythema or edema. Neck: No lymphadenopathy, supple. Respiratory: Lungs are clear to auscultation; no wheezes, rales, or rhonchi. Cardiovascular: Regular rate and rhythm; no murmur, rub, or gallop. Gastrointestinal: Abdomen is soft and nontender, no masses or organomegaly, bowel sounds normal. Skin: Warm and dry, no rashes on exposed skin, normal color. Back: Nontender to palpation over the thoracolumbar spine. No CVAT. Extremities: No lower extremity edema, no calf tenderness or swelling. Neurological: Alert and oriented. Moving all four extremities easily and equally. Cranial nerves II through XII are examined and are intact (visual acuity not tested) with the exception of mild left facial weakness and slight tongue deviation to the left. Strength is 5 over 5 bilaterally with testing of all major motor groups. Sensation is intact to light touch over all 4 extremities. Deep tendon reflexes are 2+ in the knees bilaterally. [id number] is performed accurately. Psychiatric: Normal affect. Constitutional: Initial Vital Signs Temperature (C) 36.7 C 10/25/16 10:02 Heart Rate 72 10/25/16 10:02 Respiratory Rate 16 10/25/16 10:02 Blood Pressure 138/91 H 10/25/16 10:02 O2 Sat (%) 94 10/25/16 10:02 O2 Delivery Mode Room Air Allergies/Adverse Reactions: No Known Allergies Allergy (Verified 01/12/12 01:26) Home Medications: Medication Instructions Recorded Acetaminophen [Tylenol ES 500 mg 1,000 mg PO Q8 PRN 07/23/16 (*)] LEVETIRACETAM [Keppra 750 mg] 10/25/16 Meclizine HCl 25 mg PO Q8 PRN #10 tablet 10/25/16 Medical Decision Making ED Course/Re-evaluation: 61-year-old male status post resection of glioblastoma multiforme in July of 2016 followed by chemotherapy and radiation therapy. He is taking Keppra for control of seizures. He had an episode of what sounds like vertigo this morning. It has resolved but he continues with headache, worse than his usual chronic headaches. I spoke with the neurosurgery service at [facility] concerning imaging. My initial concern is for intracranial hemorrhage, which can be ruled out with CT. However, he is scheduled for MRI next week. In discussion with the neurosurgery service at it is decided to proceed with CT to rule out immediate threat. He will undergo MRI as planned next week (his previous scans are in their system). CT does not show evidence of hemorrhage or significant edema. No mass effect. Patient received IV valium and zofran with some relief of dizziness. However, when he tried to move about his vertigo returned. He then received meclizine with good effect. I feel that today's episodes are vertigo, peripheral and benign; possibly labyrinthitis. I do not think that he has Meniere's. I do not think that his vertigo represents a seizure aura. I am not aware of any of his medications causing vertigo, but do not know what chemotherapy he received. He has not had ear trauma. Differential Diagnosis: I considered a ddx that includes but is not limited to seizure, vertigo, intracranial hemorrhage, intracranial edema, and tumor resurgence. - Data Points Medications Given: Discontinued Medications Diazepam (Valium Injection) 2 mg IVP EDNOW ONE Stop: 10/25/16 11:08 Last Admin: 10/25/16 11:26 Dose: 2 mg Meclizine HCl (Meclizine Hcl) 25 mg PO EDNOW ONE Stop: 10/25/16 12:37 Last Admin: 10/25/16 12:44 Dose: 25 mg Ondansetron HCl (Zofran) 4 mg IVP EDNOW ONE Stop: 10/25/16 11:08 Last Admin: 10/25/16 11:26 Dose: 4 mg Departure - Departure Disposition: Home, Routine, Self-Care Clinical Impression: Vertigo Condition: Good Instructions: Vertigo (ED), Dizziness (ED) Additional Instructions: Use the meclizine, 25 mg every eight hours, if you develop spinning again. As we discussed, it might make you sleepy and might make your mouth feel dry. Continue all of your current medications. Return if you have persistent spinning or vertigo, vomiting, worsening or change in headache, fever, new numbness or new weakness, seizure activity. Follow up with your neurosurgeons in [place] as planned. Referrals: DAYDAY ORTEGA [Primary Care Provider] - As per Instructions Prescriptions: Meclizine HCl 25 mg PO Q8 PRN #10 tablet PRN Reason: vertigo, spinning
[2016-10-25] MEDS ORDERED: DIAZEPAM 10 MG/2 ML SYR IVP ONE (11:07)
[2016-10-25] MEDS ORDERED: ONDANSETRON 4 MG/2 ML VIAL IVP ONE (11:07)
[2016-10-25] MEDS ORDERED: MECLIZINE HCL 25 MG TAB PO ONE (12:36)
[2016-10-25 14:05] VITALS: BP 128/88; PULSE 65; TEMP 97.7; O2SAT 93
== END 2016-10-25 14:05 | disposition home or self-care (01) ==
DX: R42 Dizziness and giddiness (principal)
CPT/HCPCS: 96374; J2405

== ENCOUNTER 2017-05-17 12:58 | Emergency (ER) | payer OTHER ==
[2017-05-17 13:53] LABS: % IMMATURE GRANULYOCYTES 0.6 % (0.0-1.1); ABSOLUTE IMMATURE GRANULOCYTES 0.03 10^3/uL (0.00-0.10); ABSOLUTE NRBC COUNT 0.02 10^3/uL (0-0.01); ADD DIFF? NO; ADD MORPH? NO; ADD SCAN? NO; ATYPICAL LYMPHOCYTE FLAG 0 (0-99); FRAGMENT RBC FLAG 0 (0-99); HEMOGLOBIN 15.9 g/dL (13.7-17.5); LEFT SHIFT FLG 0 (0-99); LIPEMIA HEMOLYSIS FLAG 90 (0-99); MEAN CELL HEMOGLOBIN 30.2 pg (27.9-34.1); MEAN CELL HEMOGLOBIN CONCENTR. 34.6 g/dL (32.4-36.7); MEAN CELL VOLUME 87.5 fL (81.5-99.8); MEAN PLATELET VOLUME 10.6 fL (8.7-11.7); NRBC-AUTO% 0.4 % (0.0-0.2); PLATELET CLUMPS FLAG 0 (0-99); PLATELET COUNT 177 10^3/uL (150-400); RED BLOOD CELL COUNT 5.26 10^6/uL (4.40-6.38); RED CELL DISTRIBUTION WIDTH 12.6 % (11.5-15.2)
--- NOTE | 2017-05-17 14:02 | EDPHY ---
H & P Smoking Status: Never smoked Time Seen by Provider: 05/17/17 13:28 HPI/ROS: Chief complaint. Memory loss HPI. 61-year-old male presents emergency department with forgetting events of this morning. 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 He forgot that he had an hour long breakfast with his son this morning. He has a slight headache. No chest discomfort or shortness of breath or abdominal pain. The patient had a glioblastoma in July 2016 with craniotomy and surgery. He finished radiation and chemotherapy 1 month ago. On his last MRI there was some suggestion of swelling and discussion of steroids however the the patient opted not to do the steroids. He has had a factory seizures which was the presenting complaint that led to the diagnosis of glioblastoma. He takes Keppra 750 mg twice daily and has been taking it. He does not think he had a seizure. He did not bite his tongue. He has slight residual weakness on fine motor to his left hand but feels that this is the same. He has had nausea and dizziness twice in the last week after exercise but no chest discomfort. This occurred yesterday and last week. ROS Constitutional. no fever/chills, no weakness Eyes. no problems with vision ENT. no sore throat, no nasal drainage Cardiovascular. no chest pain Respiratory. no shortness of breath, no cough Abdominal. no abdominal pain, no nausea/vomiting, no diarrhea . no problems urinating MS. no calf pain/swelling, no neck/back pain, no joint pain Skin. no rash Lymph. no swollen glands Neuro. Headache, memory loss. Residual left hand weakness from his surgery. Dizziness 2 times with nausea over the past week after exercise (John Clifford) Past Medical/Surgical History: Medical history significant for glioblastoma multiforme status post resection, chemotherapy and radiation. All factory seizures. Arthroscopy of his knee, appendectomy, tonsillectomy (John Clifford) Social History: , nonsmoker, no alcohol (John Clifford) Physical Exam: General Appearance: Alert well-developed male mild distress vital signs are stable Eyes: Pupils equal and round no pallor or injection. ENT, Mouth: Mucous membranes are moist. Respiratory: There are no retractions, lungs are clear to auscultation. Cardiovascular: Regular rate and rhythm. Gastrointestinal: Abdomen is soft and nontender, no masses, bowel sounds normal. Neurological: Awake and alert, sensory and motor exams grossly normal. Speech is normal. Cranial nerves are normal. No pronator drift. Slight ataxia left index finger on [id number]. [id number] are normal Skin: Warm and dry, no rashes. Musculoskeletal: Neck is supple nontender. Extremities symmetrical, full range of motion. Psychiatric: Patient is oriented X 3, there is no agitation. (John Clifford) Constitutional: Initial Vital Signs Temperature (C) 36.4 C 05/17/17 13:12 Heart Rate 63 05/17/17 13:12 Respiratory Rate 16 05/17/17 13:12 Blood Pressure 132/79 H 05/17/17 13:12 O2 Sat (%) 96 05/17/17 13:12 O2 Delivery Mode Room Air Allergies/Adverse Reactions: No Known Allergies Allergy (Verified 05/17/17 13:11) Home Medications: Medication Instructions Recorded LEVETIRACETAM [Keppra 750 mg] 10/25/16 Adderall 10 MG (*) 05/17/17 Medical Decision Making - Diagnostics EKG Interpretation: An EKG obtained and was read and documented in trace view. Please see trace view for full reading and report. Sinus rhythm, no acute ischemic changes ( Jarvis Sidhu) Imaging Results: Imaging Impressions Brain MRI 05/17/17 14:05 Impression: 1. Right temporal and basal ganglia postsurgical gliosis, with recurrent enhancement surrounding the surgical cavity and increasing white matter edema in the right temporal lobe and basal ganglia region suspicious for recurrent glioblastoma multiforme. Recommend neurosurgery consult. 2. No acute infarct, acute hemorrhage, hydrocephalus, or herniation. Procedures: IV normal saline, monitor Ativan orally prior to MRI (John Clifford) ED Course/Re-evaluation: 3:50 p.m. patient's care assumed. I discussed with the patient and his family the results of our MRI which showed recurrence of the glioblastoma. Patient and family are extremely surprised and state that they had a study done recently at [facility] and were told that he does not have any recurrence. The last Study we have from them was in July 2016 on the . That did show some slight residual enhancement postoperatively. 4:40 p.m. I did talk to the neuro oncologists REJI Pickens. We are pushing the images to her office and Dr. Cloud will compare them to his MRI that was done 2 weeks ago. They were told at that time that he had edema but no tumor or active blood flow. This is reassuring. Patient otherwise feels well and is eager to go home. His son is here to take him. He is currently asymptomatic. They do not recommend any steroids at this time. (Jarvis Sidhu) Differential Diagnosis: Partial list of the Differential diagnosis considered include but were not limited to; edema, recurrence cancer, seizure, and although unlikely based on the history and physical exam, I also considered CVA, TIA, infection, hemorrhage. (Jarvis Sidhu) - Data Points Laboratory Results: Laboratory Results 05/17/17 13:40 05/17/17 13:40 05/17/17 05/17/17 05/17/17 13:40 13:40 13:40 WBC 4.85 10^3/uL 10^3/uL (3.80-9.50) RBC 5.26 10^6/uL 10^6/uL (4.40-6.38) Hgb 15.9 g/dL g/dL (13.7-17.5) Hct 46.0 % % (40.0-51.0) MCV 87.5 fL fL (81.5-99.8) MCH 30.2 pg pg (27.9-34.1) MCHC 34.6 g/dL g/dL (32.4-36.7) RDW 12.6 % % (11.5-15.2) Plt Count 177 10^3/uL 10^3/uL (150-400) MPV 10.6 fL fL (8.7-11.7) Neut % (Auto) 64.0 % % (39.3-74.2) Lymph % (Auto) 21.4 % % (15.0-45.0) Kimble % (Auto) 11.5 % % (4.5-13.0) Eos % (Auto) 1.9 % % (0.6-7.6) Baso % (Auto) 0.6 % % (0.3-1.7) Nucleat RBC Rel Count 0.4 % H % (0.0-0.2) Absolute Neuts (auto) 3.10 10^3/uL 10^3/uL (1.70-6.50) Absolute Lymphs (auto) 1.04 10^3/uL 10^3/uL (1.00-3.00) Absolute Monos (auto) 0.56 10^3/uL 10^3/uL (0.30-0.80) Absolute Eos (auto) 0.09 10^3/uL 10^3/uL (0.03-0.40) Absolute Basos (auto) 0.03 10^3/uL 10^3/uL (0.02-0.10) Absolute Nucleated RBC 0.02 10^3/uL H 10^3/uL (0-0.01) Immature Gran % 0.6 % % (0.0-1.1) Immature Gran # 0.03 10^3/uL 10^3/uL (0.00-0.10) PT 14.4 SEC SEC (12.0-15.0) INR 1.13 (0.83-1.16) Sodium 139 mEq/L mEq/L (134-144) Potassium 4.2 mEq/L mEq/L (3.5-5.2) Chloride 106 mEq/L mEq/L (97-110) Carbon Dioxide 25 mEq/l mEq/l (22-31) Anion Gap 8 mEq/L mEq/L (8-16) BUN 18 mg/dL mg/dL (7-23) Creatinine 0.7 mg/dL mg/dL (0.7-1.3) Estimated GFR > 60 Glucose 101 mg/dL H mg/dL (70-100) Calcium 9.5 mg/dL mg/dL (8.5-10.4) Troponin I < 0.012 ng/mL ng/mL (0.000-0.034) Medications Given: Discontinued Medications Sodium Chloride (Ns) 1,000 mls @ 0 mls/hr IV ONCE ONE; Wide Open PRN Reason: Protocol Stop: 05/17/17 14:06 Last Admin: 05/17/17 14:20 Dose: 1,000 mls Lorazepam (Ativan) 1 mg PO EDNOW ONE Stop: 05/17/17 14:07 Last Admin: 05/17/17 14:20 Dose: 1 mg Departure - Departure Disposition: Home, Routine, Self-Care Clinical Impression: Amnesia Condition: Fair Instructions: Transient Global Amnesia (ED) Referrals: DAYDAY ORTEGA [Primary Care Provider] - As per Instructions
[2017-05-17 14:03] LABS: ANION GAP 8 mEq/L (8-16); CALCIUM 9.5 mg/dL (8.5-10.4); CARBON DIOXIDE 25 mEq/l (22-31); CHLORIDE 106 mEq/L (97-110); CREATININE 0.7 mg/dL (0.7-1.3); GLOMERULAR FILTRATION RATE > 60; GLUCOSE 101 mg/dL (70-100); POTASSIUM 4.2 mEq/L (3.5-5.2); SODIUM 139 mEq/L (134-144)
[2017-05-17] MEDS ORDERED: NS 1,000 ML IV ONE (14:05)
[2017-05-17] MEDS ORDERED: LORazepam 1 MG TAB PO ONE (14:06)
[2017-05-17 14:28] LABS: INR 1.13 (0.83-1.16); PROTIME(PATIENT) 14.4 SEC (12.0-15.0)
[2017-05-17] MEDS ORDERED: GADOBUTROL 10 ML VIAL IVP ONE (14:36)
--- NOTE | 2017-05-17 15:15 | CPEKG ---
Heart Rate: 56 RR Interval: 1071 P-R Interval: 168 QRSD Interval: 86 QT Interval: 412 QTC Interval: 398 P [place]: 52 QRS [place]: -12 T Wave [place]: 38 EKG Severity - NORMAL ECG - EKG Impression: SINUS RHYTHM Electronically Signed By: Jarvis Sidhu 17-May-2017 15:19:58
[2017-05-17 15:55] LABS: TROPONIN I < 0.012 ng/mL (0.000-0.034)
[2017-05-17 17:02] VITALS: BP 133/65; PULSE 61; RESP 18; TEMP 98.2; O2SAT 97
== END 2017-05-17 17:01 | disposition home or self-care (01) ==
DX: R41.3 Other amnesia (principal); E86.9 Volume depletion, unspecified
CPT/HCPCS: A9585